=== PATIENT | female | born 1995 | race Caucasian/White ===

== ENCOUNTER 2018-12-28 20:51 | Inpatient (IN) | payer MEDICAID ==
[2018-12-28] MEDS ORDERED: ONDANSETRON HCL INJ/PF 4 MG/2 ML SDV ONE (21:53)
[2018-12-28] MEDS ORDERED: PENICILLIN G-K 5 MILLION UNIT VIAL ONE (21:54)
[2018-12-28] MEDS ORDERED: PENICILLIN G POTASSIUM 5,000,000 UNIT in DEXTROSE 5%-WATER 100 ML IV ONE (22:00)
[2018-12-28] MEDS ORDERED: ONDANSETRON HCL INJ/PF 4 MG/2 ML SDV IV ONE (22:00)
[2018-12-28] MEDS ORDERED: RINGERS SOLUTION,LACTATED 1,000 ML IV ONE (22:00)
[2018-12-28 22:03] LABS: APPEARANCE,URINE SLIGHTLY-CLOUDY; BILIRUBIN,URINE NEGATIVE (NEGATIVE); COLOR,URINE YELLOW; GLUCOSE, URINE NEGATIVE (NEGATIVE); KETONES,URINE 20 mg/dL (NEGATIVE); LEUKOCYTE ESTERASE,URINE NEGATIVE (NEGATIVE); NITRITE,URINE NEGATIVE (NEGATIVE); PROTEIN,URINE NEGATIVE (NEGATIVE); URINE SPECIFIC GRAVITY 1.019; UROBILINOGEN,URINE NEGATIVE mg/dL (<2.0)
[2018-12-28] MEDS: RINGERS SOLUTION,LACTATED 1,000 ML IV PRN (22:03)
[2018-12-28 22:20] LABS: URINE AMPHETAMINES SCREEN NEGATIVE; URINE BARBITURATES SCREEN NEGATIVE; URINE BENZODIAZEPINES SCREEN NEGATIVE; URINE COCAINE SCREEN NEGATIVE; URINE METHADONE SCREEN NEGATIVE; URINE PHENCYCLIDINE SCREEN NEGATIVE
[2018-12-28 22:20] LABS: ABSOLUTE BASOPHILS # (AUTO) 0.1 10^3/uL (0.0-0.2); ABSOLUTE EOSINOPHILS # (AUTO) 0.1 10^3/uL (0.0-0.6); ABSOLUTE LYMPHOCYTES (AUTO) 1.8 10^3/uL (0.5-4.7); ABSOLUTE MONOCYTES (AUTO) 0.7 10^3/uL (0.1-1.4); ABSOLUTE NEUT (AUTO) 15.4 10^3/uL (1.7-8.2); BASOPHILS % (AUTO) 0.6 % (0-2); EOSINOPHILS % (AUTO) 0.5 % (0-6); HEMATOCRIT 39.4 % (36.0-47.0); HEMOGLOBIN 13.4 g/dL (12.0-15.5); LYMPHOCYTES % (AUTO) 10.1 % (13-45); MEAN CORPUSCULAR HEMOGLOBIN 29.1 pg (27.0-33.4); MEAN CORPUSCULAR VOLUME 86 fl (80-97); MONOCYTES % (AUTO) 3.7 % (3-13); PLATELET COUNT 180 10^3/uL (150-450); RED CELL DISTRIBUTION WIDTH 14.2 % (11.5-14.0); SEGMENTED NEUTROPHILS % (AUTO) 85.1 % (42-78); TOTAL CELLS COUNTED % (AUTO) 100 %; WHITE BLOOD COUNT 18.2 10^3/uL (4.0-10.5)
[2018-12-28 22:22] LABS: URINE MARIJUANA (THC) SCREEN UNCONFIRMED POSITIVE
[2018-12-28 22:44] LABS: ALBUMIN 3.7 g/dL (3.5-5.0); ALKALINE PHOSPHATASE 125 U/L (38-126); ANION GAP 13 (5-19); ASPARTATE AMINO TRANSFERASE 21 U/L (14-36); BILIRUBIN,DIRECT 0.2 mg/dL (0.0-0.4); BILIRUBIN,TOTAL 0.3 mg/dL (0.2-1.3); BLOOD UREA NITROGEN 13 mg/dL (7-20); CALCIUM 9.4 mg/dL (8.4-10.2); CARBON DIOXIDE 18 mmol/L (22-30); CHLORIDE 105 mmol/L (98-107); GLUCOSE 73 mg/dL (75-110); POTASSIUM 3.9 mmol/L (3.6-5.0); TOTAL PROTEIN 7.1 g/dL (6.3-8.2); URIC ACID 5.7 mg/dL (2.5-6.2)
[2018-12-28] MEDS ORDERED: HYDROXYZINE PAMOATE 50 MG CAPSULE ONE (23:17)
[2018-12-28] MEDS ORDERED: HYDROXYZINE PAMOATE 50 MG CAPSULE PO ONE (23:59)
[2018-12-29] MEDS ORDERED: NALBUPHINE HCL INJ 10 MG/1 ML AMPULE ONE ×2 (00:06→13:16)
[2018-12-29] MEDS ORDERED: PENICILLIN G-K 5 MILLION UNIT VIAL ONE ×3 (02:24→10:10)
[2018-12-29] MEDS: PENICILLIN G POTASSIUM 2,500,000 UNIT in DEXTROSE 5%-WATER 50 ML IV SCH ×3 (02:31→22:42)
[2018-12-29 03:29] LABS: HEMATOCRIT 38.3 % (36.0-47.0); HEMOGLOBIN 13.1 g/dL (12.0-15.5); MEAN CORPUSCULAR HEMOGLOBIN 29.1 pg (27.0-33.4); MEAN CORPUSCULAR HGB CONC 34.1 g/dL (32.0-36.0); MEAN CORPUSCULAR VOLUME 85 fl (80-97); PLATELET COUNT 193 10^3/uL (150-450); RED BLOOD COUNT 4.49 10^6/uL (3.72-5.28); RED CELL DISTRIBUTION WIDTH 13.9 % (11.5-14.0); WHITE BLOOD COUNT 21.6 10^3/uL (4.0-10.5)
[2018-12-29] MEDS ORDERED: FENTANYL CITRATE INJ/PF 100 MCG/2 ML AMPUL ONE (03:29)
[2018-12-29] MEDS ORDERED: PHENYLEPHRINE HCL INJ/PF 10 MG/1 ML SDV ONE (03:29)
[2018-12-29] MEDS ORDERED: EPHEDRINE SULFATE INJ 50 MG/1 ML AMPULE ONE (03:30)
[2018-12-29] MEDS ORDERED: BUPIVACAINE HCL 0.25 % INJ/PF (2.5 MG/1 ML) 30 ML VIAL ONE (03:30)
[2018-12-29] MEDS ORDERED: FENTANYL/BUPIVACAINE/NS/PF 300 MCG/150 ML RTUINJ EPI ONE (03:30)
[2018-12-29] MEDS: RINGERS SOLUTION,LACTATED 1,000 ML IV PRN (03:36)
[2018-12-29] MEDS ORDERED: OXYTOCIN 10 UNIT/ML VIAL ONE (06:11)
[2018-12-29] MEDS ORDERED: LIDOCAINE 1% INJ-PF (10 MG/ML) 30 ML SDV ONE (06:11)
[2018-12-29] MEDS ORDERED: MISOPROSTOL 0.2 MG TABLET ONE (06:11)
[2018-12-29] MEDS ORDERED: OXYTOCIN/NORMAL SALINE 20 UNIT/1,000 ML RTUINJ ONE (06:12)
[2018-12-29] MEDS ORDERED: OXYTOCIN/NORMAL SALINE 20 UNIT/1,000 ML RTUINJ IV PRN ×2 (07:06→14:15)
--- NOTE | 2018-12-29 08:18 | Admission Physical ---
Datetime Report Generated by CPN: 12/29/2018 08:18 CURRENT ADMISSION Chief Complaint: Uterine Contractions Indication for Induction: Not Applicable Admit Impression : Term, Intrauterine ; Active Labor Admit Impression- Other: Early active labor Admit Plan: Admit to Unit; Initiate Labor Induction Protocol ALLERGIES Medication Allergies: No Known Allergies (12/28/2018) Latex: Unknown (Annotations: Data stored by CPN on behalf of user) OBSTETRICAL HISTORY EDC: 12/31/2018 00:00 : 1 Para: 0 Gestational Diabetes: Unknown Rh Sensitization: No Incompetent Cervix: No BUDDY: No Infertility: No ART Treatment: No Uterine Anomaly: No IUGR: No Hx Previous C/S: No Macrosomia: No Hx Loss/Stillborn: No PIH: No Hx : No Placenta Previa/Abruption: No Depression/PP Depression: No PTL/PROM: No Post Hemorrhage: No Current Procedures: Ultrasound; NST Obstetrical History Comments: g1-current SEE RECORDS Alcohol: No Marijuana : No Cocaine: No Other Illicit Drugs: No Cigarettes: Current Some Day Smoker. [id number] Cigarette Frequency: 5 - 10 per day Advised to Stop: Yes MEDICAL HISTORY Diabetes: No Blood Transfusion: No Pulmonary Disease (Asthma, TB): No Breast Disease: No Hypertension: No Bread Racker Surgery: No Heart Disease: No Hosp/Surgery: No Autoimmune Disorder: No Anesthetic Complications: No Kidney Disease: No Abnormal Pap Smear: No Neuro/Epilepsy: No Psychiatric Disorders: Yes Other Medical Diseases: No Hepatitis/Liver Disease: No Significant Family History: No Varicosities/Phlebitis: No Trauma/Violence : No Thyroid Dysfunction: No Medical History Comments: ? bipolar disorder INFECTIOUS HISTORY Gonorrhea: No Genital Herpes: No Chlamydia: No Tuberculosis: No Syphilis: No Hepatitis: No HIV/AIDS Exposure: No HPV: No PHYSICAL EXAM General: Normal HEENT: Normal Neurologic: Normal Thyroid: Deferred Heart: Normal Lungs: Normal Breast: Deferred Back: Normal Abdomen: Normal Genitourinary Exam: Normal Extremities: Normal DTRs: Normal Pelvic Type: Adequate Vital Signs: Reviewed VAGINAL EXAM Dilatation: 3 Effacement: 100 Station: -3 Contraction Comments: q 3 MEMBRANES Membranes: Intact FETUS A EGA: 39.5 Monitoring: External US FHR- Baseline: 125 Variability: Moderate 6-25bpm Accelerations: 15X15 Decelerations: None Presentation: Vertex Admit Comment: 23yo at 39+5ega presents with regular contractions but 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 History of bipolar d/p. + tobacco use. +THC use during prengnacy. Supportive boyfirend not FOB. Renal pyelectasis. late health dept transfer at 38wks. need media planner. Cervical change noted at 4 hours check and due to pain admitted. SROM with meconium approx 1 hour after admission. PLANS FOR LABOR AND DELIVERY Labor and Delivery: None Pain Management: Epidural Feeding Preference: Both Benefit of Breast Feed Discussed: Yes Circumcision: Yes INFORMED CONSENT Informed Consent Obtained: Vaginal Delivery; Induction of Labor; Risks, Benefits and Alternatives Discussed Signature: with User ID: [email or web address]
[2018-12-29] MEDS ORDERED: LIDOCAINE 2% INJ-PF (20 MG/ML) 10 ML AMPUL ONE (11:38)
[2018-12-29] MEDS ORDERED: DIPHENHYDRAMINE HCL 25 MG CAPSULE PO PRN (14:15)
[2018-12-29] MEDS ORDERED: MAGNESIUM HYDROXIDE SUSP 30 ML UDCUP PO PRN (14:15)
[2018-12-29] MEDS ORDERED: MISOPROSTOL 0.2 MG TABLET PR ONE (14:15)
[2018-12-29] MEDS ORDERED: ACETAMINOPHEN WITH CODEINE #3 TABLET PO PRN ×2 (14:15)
[2018-12-29] MEDS ORDERED: PROMETHAZINE HCL 25 MG SUPP.RECT PR PRN (14:15)
[2018-12-29] MEDS ORDERED: MEASLES,MUMPS&RUBELLA VACC/PF 0.5 ML VIAL SUBCUT PRN (14:15)
[2018-12-29] MEDS ORDERED: PROMETHAZINE HCL INJ 25 MG/1 ML VIAL IV PRN (14:15)
[2018-12-29] MEDS ORDERED: PSEUDOEPHEDRINE HCL 30 MG TABLET PO PRN (14:15)
[2018-12-29] MEDS ORDERED: DIPH/PERTUSS(ACELL)/TETANUS VAC/PF 0.5 ML SYR (>=10YO) IM PRN (14:15)
[2018-12-29] MEDS ORDERED: GLYCERIN/WITCH HAZEL LEAF 1 EACH MED..WIPE TP PRN (14:15)
[2018-12-29] MEDS ORDERED: ACETAMINOPHEN 650 MG SUPP.RECT PR PRN (14:15)
[2018-12-29] MEDS ORDERED: NA PHOS,M-B/NA PHOS,DI-BA (ADULT) 133 ML ENEMA PR PRN (14:15)
[2018-12-29] MEDS ORDERED: PROMETHAZINE HCL 25 MG TABLET PO PRN (14:15)
[2018-12-29] MEDS ORDERED: DIBUCAINE 1% OINTMENT 56 GM TP PRN (14:15)
[2018-12-29] MEDS ORDERED: BENZOCAINE/MENTHOL AEROSOL SPRAY 56 ML TOP PRN (14:15)
[2018-12-29 14:46] LABS: ARTERIAL BLOOD BASE EXCESS -8.3 mmol/L; ARTERIAL BLOOD H2CO3 1.82 mmol/L (1.05-1.35); ARTERIAL BLOOD HCO3 21.6 mmol/L (20-24); ARTERIAL BLOOD O2 SATURATION 23.3 % (94-98); ARTERIAL BLOOD PCO2 60.6 mmHg (35-45); ARTERIAL BLOOD TOTAL CO2 23.5 mmol/L (21-25)
[2018-12-29 14:49] LABS: ARTERIAL BLOOD PH 7.17 (7.35-7.45); ARTERIAL BLOOD PO2 20.7 mmHg (80-100)
--- NOTE | 2018-12-29 15:09 | Delivery Summary ---
Del Sum A-C Datetime Report Generated by CPN: 12/29/2018 15:09 DELIVERY PERSONNEL DELIVERY PERSONNEL: [id number] Delivery Doctor:: Gifty Montoya MD Nurse Treasury Associate Certified:: Patty Sauer CNM Labor and Delivery Nurse:: isaac morris Labor and Delivery Nurse:: Enid Aviles RN Nursery Nurse:: Judie Wu RN Nursery Nurse:: Anel Dalton Additional Personnel: : CAT Rivas MATERNAL INFORMATION Delivery Anesthesia: Epidural Medications After Delivery: Pitocin Drip 20 Units/1000ml NSS; Cytotec 1000mcg Per Rectum/Vagina Delivery QBL: 300 Maternal Complications: None Provider Comments: VAVD of a viable male at 1400 w/ an DI w/nuchal cord x 1 presentation; shoulder dystocia resolved w/suprapubic pressure; 1st deg midline and right lat wall lac LABOR SUMMARY EDC: 12/31/2018 00:00 No. Babies in Womb: 1 Labor Anesthesia: Epidural LABOR INFORMATION Reason for Induction: Not Applicable Onset of Labor: 12/29/2018 04:00 Complete Dilatation: 12/29/2018 13:26 Oxytocin: Augmentation Group B Beta Strep: positive Antibiotics # of Doses: 4 Antibiotics Time of Last Dose: 1007 Name of Antibiotic Given: PCN Steroids Given: None Reason Steroids Not Administered: Not Applicable MEMBRANES Membranes Rupture Method: Spontaneous Rupture of Membranes: 12/29/2018 04:05 Length of Rupture (hr): 9.92 Amniotic Fluid Color: Clear Amniotic Fluid Amount: Moderate Amniotic Fluid Odor: Foul STAGES OF LABOR Stage 1 hr: 9 Stage 1 min: 26 Stage 2 hr: 0 Stage 2 min: 34 Stage 3 hr: 0 Stage 3 min: 3 Total Time in Labor hr: 10 Total Time in Labor min: 3 VAGINAL DELIVERY Episiotomy: None Laceration #1: Vaginal Laceration Extension #1: First Degree Laceration #2: Vaginal Laceration Extension #2: First Degree Laceration Repair: Yes Laceration Repair Note: 1st Degree midline lac and right lateral vaginal wall lac repaired with 2-0 vciryl Sponge Count Correct: Yes Sharps Count Correct: Yes BABY A INFORMATION Infant Delivery Date/Time: 12/29/2018 14:00 Method of Delivery: Vaginal Born in Route : No : N/A Forceps: N/A Vacuum Extraction: Successful Shoulder Dystocia : Yes ASSISTED DELIVERY BABY A Indication for Assisted Delivery: persistantvdecelerations and maternal exhaustion Station Vacuum/Forcep Apply: +2 Position Vacuum/Forcep Apply: Left Occipital Transverse Vacuum Number of Pulls: 8 Vacuum Number of PopOffs: 1 Vacuum Maximum Pressure Obtained: 500 Reduce Pressure btwn Ctx: Yes Vacuum Circuit Court Clerk: [place] Total Time Vacuum Applied: 4 min SHOULDER DYSTOCIA BABY A Delivery of Head: 12/29/2018 13:58 Time Head to Delivery : 2.0 1st Intervention to Resolve: McRobert's Maneuver 2nd Intervention to Resolve: Suprapubic Pressure Verify NO Fundal Pressure: No Fundal Pressure Applied PRESENTATION/POSITION BABY A Presentation: Cephalic Cephalic Presentation: Vertex Vertex Position: Left Occipital Anterior PLACENTA INFORMATION BABY A Placenta Delivery Time : 12/29/2018 14:03 Placenta Method of Delivery: Spontaneous Placenta Status: Delivered SCORES BABY A Heart Rate 1 min: >100 bpm Resp Effort 1 min: Slow, Irregular Reflex Irritability 1 min: Cough or Sneeze or Pulls Away Muscle Tone 1 min: Some Flexion of Extremities Color 1 min: Body [place], Extremities Blue SCORE 1 MIN: 7 Heart Rate 5 min: >100 bpm Resp Effort 5 min: Good Cry Reflex Irritability 5 min: Cough or Sneeze or Pulls Away Muscle Tone 5 min: Some Flexion of Extremities Color 5 min: Body [place], Extremities Blue SCORE 5 MIN: 8 INFORMATION BABY A Gestational Age at Delivery: 39.5 Gestational Status: Full Term- 39- 40.6 Weeks Infant Outcome : Liveborn Infant Condition : Stable Sex: Male IDENTIFICATION BABY A Infant Verification Date/Time: 12/29/2018 14:52 ID Band Number: [id number] Mother's Name Verified: Yes Infant RN Verifying : rolando Additional Verifying Personnel: skyler alexander WEIGHT/LENGTH BABY A Infant Birthweight (gm): 3175 Weight (lb): 7 Weight (oz): 0 Infant Length (in): 19.75 Infant Length (cm): 50.17 CORD INFORMATION BABY A Nuchal Cord : Around Neck x1, Loose Cord Blood Taken: Yes-For Storage (Mom's Blood type +) ASSESSMENT BABY A Infant Complications: Multiple Variable Decels; Shoulder Dystocia Infant Respirations: Grunting; Intercostal Retractions; Nasal Flaring Care By: C Jazmin Transferred To: [facility] SIGNATURES Signature: with User ID: [email or web address]
[2018-12-29 15:13] LABS: ARTERIAL BLOOD FIO2 CORD BLOOD
[2018-12-29] MEDS: IBUPROFEN 800 MG TABLET PO SCH (22:20)
[2018-12-29] MEDS: FAMOTIDINE 20 MG TABLET PO SCH (22:20)
[2018-12-29] MEDS: DOCUSATE SODIUM 100 MG CAPSULE PO SCH (22:41)
[2018-12-29] MEDS: FERROUS SULFATE 325 MG TABLET PO SCH (22:41)
[2018-12-30] MEDS: IBUPROFEN 800 MG TABLET PO SCH ×3 (06:00→21:42)
[2018-12-30 08:18] LABS: HEMATOCRIT 35.3 % (36.0-47.0); MEAN CORPUSCULAR HEMOGLOBIN 29.4 pg (27.0-33.4); MEAN CORPUSCULAR VOLUME 86 fl (80-97); PLATELET COUNT 138 10^3/uL (150-450); RED BLOOD COUNT 4.08 10^6/uL (3.72-5.28); RED CELL DISTRIBUTION WIDTH 14.3 % (11.5-14.0); WHITE BLOOD COUNT 11.5 10^3/uL (4.0-10.5)
--- NOTE | 2018-12-30 09:36 | PDOC PROGRESS REPORT ---
Subjective-OB Progress Note for:: 12/30/18 - PP Day #1, doing well, breast and bottlefeeding, O+, rubella immune. Physical Exam (OB) Vital Signs: Temp Pulse Resp BP Pulse Ox 98.2 F 71 16 103/60 97 12/30/18 07:17 12/30/18 07:17 12/30/18 07:17 12/30/18 07:17 12/30/18 07:17 Intake & Output 12/29/18 12/30/18 12/31/18 06:59 06:59 06:59 Intake Total 694 450 Balance 694 450 Weight 121.3 kg - General General Appearance: Appears well, Alert In distress: None - PIH/Pre-Eclampsia Headache: Absent Epigastric Pain: No Visual Changes: No - Dressing Removed: No - Lochia Lochia Amount: Scant < 10 ml Lochia Color: Rubra/Red - Abdomen Description: Soft Hernia Present: No Fundal Description: Firm Fundal Height: u/u - u/2 - Respiratory Respiratory Status: No respiratory distress - Abdominal Distension: No distension Tenderness: Nontender - Genitourinary Genitourinary Note: voiding - Extremities Upper extremity: Normal inspection Lower extremities: Normal inspection - Neurological Cognition: Normal Orientation: AAOx4 - Psychological Associated symptoms: Normal affect, Normal mood - Skin Skin Temperature: Warm Skin Moisture: Dry Objective-Diagnostic Laboratory: 12/30/18 07:27 12/28/18 22:05 12/29/18 12/30/18 14:04 07:27 WBC 11.5 H RBC 4.08 Hgb 12.0 Hct 35.3 L MCV 86 MCH 29.4 MCHC 34.0 RDW 14.3 H Plt Count 138 L Carbonic Acid 1.82 H HCO3/H2CO3 Ratio 11:1 ABG pH 7.17 L* ABG pCO2 60.6 H ABG pO2 20.7 L* ABG HCO3 21.6 ABG O2 Saturation 23.3 L ABG Base Excess -8.3 FiO2 CORD BLOOD Assessment and Plan(PN) - Assessment and Plan (1) Bipolar 1 disorder Is this a current diagnosis for this admission?: Yes (2) Carrier of group B Streptococcus Is this a current diagnosis for this admission?: Yes (3) Cigarette smoker Is this a current diagnosis for this admission?: Yes (4) Gestational hypertension Qualifiers: Trimester: third trimester Qualified Code(s): O13.3 - Gestational [-induced] hypertension without significant proteinuria, third trimester Is this a current diagnosis for this admission?: Yes (5) Marijuana smoker Is this a current diagnosis for this admission?: Yes (6) Meconium in amniotic fluid Is this a current diagnosis for this admission?: Yes (7) Vacuum-assisted vaginal delivery Is this a current diagnosis for this admission?: Yes - Time Spent with Patient Time with patient: Less than 15 minutes Medications reviewed and adjusted accordingly: Yes - Disposition Anticipated Discharge: Home Within: within 24 hours
[2018-12-30] MEDS: SENNOSIDES/DOCUSATE 8.6-50 MG 1 EACH TABLET PO SCH (12:34)
[2018-12-30] MEDS: PRENATAL VITAMIN W DHA CAPSULE PO SCH (12:34)
[2018-12-30] MEDS: DOCUSATE SODIUM 100 MG CAPSULE PO SCH ×2 (12:34→17:51)
[2018-12-30] MEDS: FAMOTIDINE 20 MG TABLET PO SCH ×2 (12:34→21:42)
[2018-12-30] MEDS: FERROUS SULFATE 325 MG TABLET PO SCH ×2 (12:34→17:51)
[2018-12-31] MEDS: IBUPROFEN 800 MG TABLET PO SCH ×2 (05:10→13:09)
[2018-12-31] MEDS: FERROUS SULFATE 325 MG TABLET PO SCH (09:37)
[2018-12-31] MEDS: DOCUSATE SODIUM 100 MG CAPSULE PO SCH (09:37)
[2018-12-31] MEDS: PRENATAL VITAMIN W DHA CAPSULE PO SCH (09:37)
[2018-12-31] MEDS: SENNOSIDES/DOCUSATE 8.6-50 MG 1 EACH TABLET PO SCH (09:37)
[2018-12-31] MEDS: FAMOTIDINE 20 MG TABLET PO SCH (09:38)
--- NOTE | 2018-12-31 13:58 | PDOC DISCHARGE SUMMARY ---
Impression - Admit/DC Date/PCP Admission Date/Primary Care Provider: 12/29/18 02:08 ADELINE HERNANDEZ MD Discharge Date: 12/31/18 - Additional Information Discharge Diet: As Tolerated, Regular Discharge Activity: Activity As Tolerated, Balance Activity w/Rest, No Lifting Over 10 Pounds, Non-Ambulatory Child, Pelvic Rest, No tub bath, Walk Frequently Referrals: ADELINE HERNANDEZ MD [Primary Care Provider] - Prescriptions: Ibuprofen [Motrin 800 mg Tablet] 800 mg PO Q8HP PRN #20 tablet PRN Reason: For Pain Scale 1-3 Docusate Sodium [Colace 100 mg Capsule] 100 mg PO BID #60 capsule Ferrous Sulfate [Feosol 325 mg Tablet] 325 mg PO BID #60 tablet Home Medications: Prenat 115/Iron Fum/Folic/Dss [ 19 Tablet] 1 each PO DAILY 12/28/18 Docusate Sodium [Colace 100 mg Capsule] 100 mg PO BID #60 capsule 12/31/18 Ferrous Sulfate [Feosol 325 mg Tablet] 325 mg PO BID #60 tablet 12/31/18 Ibuprofen [Motrin 800 mg Tablet] 800 mg PO Q8HP PRN #20 tablet 12/31/18 Results Laboratory Results: WBC 11.5 10^3/uL (4.0-10.5) H 12/30/18 07:27 RBC 4.08 10^6/uL (3.72-5.28) 12/30/18 07:27 Hgb 12.0 g/dL (12.0-15.5) 12/30/18 07:27 Hct 35.3 % (36.0-47.0) L 12/30/18 07:27 MCV 86 fl (80-97) 12/30/18 07:27 MCH 29.4 pg (27.0-33.4) 12/30/18 07:27 MCHC 34.0 g/dL (32.0-36.0) 12/30/18 07:27 RDW 14.3 % (11.5-14.0) H 12/30/18 07:27 Plt Count 138 10^3/uL (150-450) L 12/30/18 07:27 Lymph % (Auto) 10.1 % (13-45) L 12/28/18 22:05 [place] % (Auto) 3.7 % (3-13) 12/28/18 22:05 Eos % (Auto) 0.5 % (0-6) 12/28/18 22:05 Baso % (Auto) 0.6 % (0-2) 12/28/18 22:05 Absolute Neuts (auto) 15.4 10^3/uL (1.7-8.2) H 12/28/18 22:05 Absolute Lymphs (auto) 1.8 10^3/uL (0.5-4.7) 12/28/18 22:05 Absolute Monos (auto) 0.7 10^3/uL (0.1-1.4) 12/28/18 22:05 Absolute Eos (auto) 0.1 10^3/uL (0.0-0.6) 12/28/18 22:05 Absolute Basos (auto) 0.1 10^3/uL (0.0-0.2) 12/28/18 22:05 Seg Neutrophils % 85.1 % (42-78) H 12/28/18 22:05 Carbonic Acid 1.82 mmol/L (1.05-1.35) H 12/29/18 14:04 HCO3/H2CO3 Ratio 11:1 12/29/18 14:04 ABG pH 7.17 (7.35-7.45) L* 12/29/18 14:04 ABG pCO2 60.6 mmHg (35-45) H 12/29/18 14:04 ABG pO2 20.7 mmHg (80-100) L* 12/29/18 14:04 ABG HCO3 21.6 mmol/L (20-24) 12/29/18 14:04 ABG Total CO2 23.5 mmol/L (21-25) 12/29/18 14:04 ABG O2 Saturation 23.3 % (94-98) L 12/29/18 14:04 ABG Base Excess -8.3 mmol/L 12/29/18 14:04 FiO2 CORD BLOOD 12/29/18 14:04 Sodium 136.1 mmol/L (137-145) L 12/28/18 22:05 Potassium 3.9 mmol/L (3.6-5.0) 12/28/18 22:05 Chloride 105 mmol/L (98-107) 12/28/18 22:05 Carbon Dioxide 18 mmol/L (22-30) L 12/28/18 22:05 Anion Gap 13 (5-19) 12/28/18 22:05 BUN 13 mg/dL (7-20) 12/28/18 22:05 Creatinine 1.06 mg/dL (0.52-1.25) 12/28/18 22:05 Est GFR ( Amer) > 60 (>60) 12/28/18 22:05 Est GFR (MDRD) Non-Af > 60 (>60) 12/28/18 22:05 Glucose 73 mg/dL (75-110) L 12/28/18 22:05 Uric Acid 5.7 mg/dL (2.5-6.2) 12/28/18 22:05 Calcium 9.4 mg/dL (8.4-10.2) 12/28/18 22:05 Total Bilirubin 0.3 mg/dL (0.2-1.3) 12/28/18 22:05 Direct Bilirubin 0.2 mg/dL (0.0-0.4) 12/28/18 22:05 Neonat Total Bilirubin Not Reportable 12/28/18 22:05 Neonat Direct Bilirubin Not Reportable 12/28/18 22:05 Neonat Indirect Bili Not Reportable 12/28/18 22:05 AST 21 U/L (14-36) 12/28/18 22:05 ALT 19 U/L (<35) 12/28/18 22:05 Alkaline Phosphatase 125 U/L (38-126) 12/28/18 22:05 Lactate Dehydrogenase 182 U/L (120-246) 12/28/18 22:05 Total Protein 7.1 g/dL (6.3-8.2) 12/28/18 22:05 Albumin 3.7 g/dL (3.5-5.0) 12/28/18 22:05 Urine Color YELLOW 12/28/18 21:30 Urine Appearance SLIGHTLY-CLOUDY 12/28/18 21:30 Urine pH 6.0 (5.0-9.0) 12/28/18 21:30 Ur Specific [place] 1.019 12/28/18 21:30 Urine Protein NEGATIVE mg/dL (NEGATIVE) 12/28/18 21:30 Urine Glucose (UA) NEGATIVE mg/dL (NEGATIVE) 12/28/18 21:30 Urine Ketones 20 mg/dL (NEGATIVE) H 12/28/18 21:30 Urine Blood SMALL (NEGATIVE) H 12/28/18 21:30 Urine Nitrite NEGATIVE (NEGATIVE) 12/28/18 21:30 Urine Bilirubin NEGATIVE (NEGATIVE) 12/28/18 21:30 Urine Urobilinogen NEGATIVE mg/dL (<2.0) 12/28/18 21:30 Ur Leukocyte Esterase NEGATIVE (NEGATIVE) 12/28/18 21:30 Urine Ascorbic Acid NEGATIVE (NEGATIVE) 12/28/18 21:30 Membranes Rupture NEGATIVE (NEGATIVE) 12/28/18 22:00 Urine Opiates Screen NEGATIVE 12/28/18 21:30 Urine Methadone Screen NEGATIVE 12/28/18 21:30 Ur Barbiturates Screen NEGATIVE 12/28/18 21:30 Ur Phencyclidine Scrn NEGATIVE 12/28/18 21:30 Ur Amphetamines Screen NEGATIVE 12/28/18 21:30 U Benzodiazepines Scrn NEGATIVE 12/28/18 21:30 Urine Cocaine Screen NEGATIVE 12/28/18 21:30 U Marijuana (THC) Screen UNCONFIRMED POSITIVE 12/28/18 21:30 RPR NONREACTIVE (NONREACTIVE) 12/28/18 22:05 Blood Type O POSITIVE 12/28/18 22:05 Antibody Screen NEGATIVE 12/28/18 22:05
[2018-12-31 14:08] VITALS: BP 122/74
== END 2018-12-31 18:45 | disposition home or self-care (01) | DRG 806 ==
LOC: LC 20:51 → LR 12-29 02:08 → 2S 12-29 17:01
PROVIDERS: ADMIT Obstetrics & Gynecology; ATTEND Obstetrics & Gynecology
PROC: 10D07Z6 Extraction of Products of Conception, Vacuum, Via Natural or Artificial Opening (ICD-10-PCS; principal; 2018-12-29)
PROC: 0HQ9XZZ Repair Perineum Skin, External Approach (ICD-10-PCS; 2018-12-29)
DX: O69.81X0 Labor and delivery complicated by cord around neck, without compression, not applicable or unspecified (principal); O99.324 Drug use complicating childbirth; Z37.0 Single live birth; F12.90 Cannabis use, unspecified, uncomplicated; O66.0 Obstructed labor due to shoulder dystocia; O70.0 First degree perineal laceration during delivery; O99.824 Streptococcus B carrier state complicating childbirth; O76 Abnormality in fetal heart rate and rhythm complicating labor and delivery; O64.0XX0 Obstructed labor due to incomplete rotation of fetal head, not applicable or unspecified; O99.344 Other mental disorders complicating childbirth; F31.9 Bipolar disorder, unspecified; O99.334 Smoking (tobacco) complicating childbirth; F17.210 Nicotine dependence, cigarettes, uncomplicated; Z3A.39 39 weeks gestation of pregnancy; O13.4 Gestational [pregnancy-induced] hypertension without significant proteinuria, complicating childbirth
CPT/HCPCS: 36415; 80053; 80307; 80349; 81005; 82803; 83615; 84112; 84550; 85025; 85027; 86592; 86850; 86900; 86901; 88307; G0480; J2300; J2370; J2405; J2540; J2590; J3010; J3490; J7060